=== PATIENT | female | born 1965 | race Caucasian/White ===

== ENCOUNTER 2021-09-15 19:21 | Emergency (ER) | payer BC, SELFPAY ==
--- NOTE | ~2021-09-15 | XR_ITS ---
XR knee LT min 4V 09/15/2021 19:48 Indication: Left knee pain after fall Procedure: 5 views left knee Comparison: No prior studies for comparison. Findings: There is infrapatellar soft tissue swelling. No joint effusion. Mild tricompartment osteoar thritis of the knee. No acute fracture is identified. Impression: 1: No acute fracture. 2: Moderate infrapatellar soft tissue swelling. If there is concern for patellar tendon injury, corre lation with MRI recommended. Reviewed, dictated and finalized at location A. Impression: 1: No acute fracture. 2: Moderate infrapatellar soft tissue swelling. If there is concern for patella r tendon injury, correlation with MRI recommended.
[2021-09-15 19:28] VITALS: BP 135/91; PULSE 75; RESP 20; TEMP 37.3; O2SAT 99
[2021-09-15] MEDS: TETANUS,DIPHTHERIA,AC PERTUSSIS ADULT (0.5 ML) BOOSTRIX IM (20:01)
--- NOTE | 2021-09-15 20:13 | ED.LOWEXIN ---
HPI - Extremity Injury (Lower) General Chief Complaint: Extremity Injury, Lower Stated Complaint: Left knee injury Time Seen by Provider: 09/15/21 19:49 Source: patient and RN notes reviewed Mode of arrival: ambulatory Limitations: no limitations History of Present Illness HPI Narrative: Patient presents today complaining of an injury to her left knee and laceration to her left earlobe. She fell when she on a stair at work at 1730 this afternoon. She is unsure how she injured her ear. Denies numbness or tingling. She currently rates her ear pain 5/10 at rest, which increases to 7/10 with standing or walking. She has applied ice at home without relief. She also took a Tylenol prior to her injury. This will be a Workmen's Compensation injury. MD complaint: knee injury Review of Systems Review of Systems: CONSTITUTIONAL: Denies body aches, fever, chills, or sweats. EYES: Denies visual changes, redness, or discharge. ENT: Denies rhinorrhea, congestion, sore throat, or otalgia. CARDIOVASCULAR: Denies chest pain, palpitations, or edema. RESPIRATORY: Denies cough or dyspnea. GASTROINTESTINAL: Denies abdominal pain, nausea, vomiting, or diarrhea. GENITOURINARY: Denies dysuria or hematuria. SKIN: Denies rash, itching. + Left earlobe laceration MUSCULOSKELETAL: Denies back pain, or myalgia. + Left knee injury NEUROLOGIC: Denies headache, numbness, tingling, or weakness. PSYCH: Denies depression or anxiety. PMFSH Comments At time of signature, I have reviewed and agree with nursing past medical, surgical, social and family history unless otherwise noted. Please see nursing chart for further information. There is no relevant family history pertinent to the presenting complaint Exam Narrative: GENERAL: Well-appearing, well-nourished, and in no acute distress. HEAD: Normocephalic. EYES: EOMI. No redness or drainage. Conjunctivae normal. ENT: Mucous membranes pink and moist. 0.5cm partial thickness linear laceration to the posterior left earlobe. No active bleeding. NECK: Normal AROM. Supple. No lymphadenopathy. CHEST: No respiratory distress. EXTREMITIES: Left knee: Large area of ecchymosis and mild to moderate edema to the medial knee, overlying the medial patella. Pain with flexion and extension. No pain with internal or external rotation. Distal sensation intact. Capillary refill normal. Posterior tibial pulse normal. Tenderness to palpation of the patella. No abnormal movement of the patella. SKIN: Warm, dry, no rash. Capillary refill normal. Normal skin turgor. NEURO: No focal deficits. Alert and oriented x3. Gait steady. PSYCH: Normal affect. No signs of depression or anxiety. Course Vital Signs Vital signs: Vital Signs Temperature 99.1 F 09/15/21 19:28 Pulse Rate 75 09/15/21 19:28 Respiratory Rate 20 09/15/21 19:28 Blood Pressure 135/91 H 09/15/21 19:28 Pulse Oximetry 99 09/15/21 19:28 Temperature 99.1 F 09/15/21 19:28 Pulse Rate 75 09/15/21 19:28 Respiratory Rate 20 09/15/21 19:28 Blood Pressure 135/91 H 09/15/21 19:28 Pulse Oximetry 99 09/15/21 19:28 Reviewed. Pt has been instructed to follow up with her PCP regarding her elevated blood pressure today. Procedures Laceration Laceration 1: Date: 09/15/21 Time: 20:05 Site: face (left earlobe) Size (cm): 0.5 Description: linear Depth: simple, single layer Pre-repair: wound explored (cleansed with saline and technicare) ====== Skin Level ====== Skin layer closed with: dermabond ====== Subcutaneous Layer ====== ====== Muscle Layer ====== ====== Tendon Layer ====== MDM - Extremity Injury (Lower) Differential Diagnosis Differential diagnosis: Likely other (Laceration, contusion, hematoma, abrasion, fracture) Imaging Data Radiologist's impression: ITS Impressions Knee X-Ray 09/15/21 19:53 Impression: 1: No acute fracture. 2: Moderate infr
== END 2021-09-15 20:28 | disposition home or self-care (01) ==
PROVIDERS: Emergency Provider Nurse Practitioner; PCP Internal Medicine
DX: S89.92XA Unspecified injury of left lower leg, initial encounter (principal); W19.XXXA Unspecified fall, initial encounter; Y99.0 Civilian activity done for income or pay; S01.312A Laceration without foreign body of left ear, initial encounter; X58.XXXA Exposure to other specified factors, initial encounter; Z23 Encounter for immunization; E78.00 Pure hypercholesterolemia, unspecified; Z98.84 Bariatric surgery status
CPT/HCPCS: 12011; 73564; 90471; 90715; 99213; G0463; L1830

== ENCOUNTER 2021-11-25 08:10 | Emergency (ER) | payer BC, SELFPAY ==
[2021-11-25 08:18] VITALS: BP 119/82; PULSE 82; RESP 20; TEMP 36.6; O2SAT 99
--- NOTE | 2021-11-25 08:32 | ED.URI ---
HPI - URI/Sore Throat General Chief Complaint: Upper Respiratory Infection Stated Complaint: Headache/Sore Throat/Cough Time Seen by Provider: 11/25/21 08:44 Source: patient Mode of arrival: ambulatory Limitations: no limitations History of Present Illness MD elicited complaint: cough and sore throat Related Data Home Medications Medication Instructions Recorded Confirmed omeprazole magnesium [Acid Drawing Kiln Supervisor 20 mg PO BID 09/15/21 11/25/21 (omeprazole)] pravastatin 10 mg PO DAILY 09/15/21 11/25/21 Allergies Allergy/AdvReac Type Severity Reaction Status Date / Time No Known Allergies Allergy Verified 11/25/21 08:27 Review of Systems Review of Systems: CONSTITUTIONAL: Denies malaise, chills, sweats, or fever. EYES: Denies visual changes, redness, or discharge. ENT: Reports rhinorrhea, congestion, sinus pain, otalgia and sore throat. CARDIOVASCULAR: Denies chest pain, palpitations, or edema. RESPIRATORY: Reports cough. Denies dyspnea. GASTROINTESTINAL: Denies abdominal pain, nausea, vomiting, diarrhea SKIN: Denies rash or itching. MUSCULOSKELETAL: Denies myalgia. NEUROLOGIC: Denies headache. All systems reviewed & are unremarkable except as noted in HPI and below PMFSH Comments At time of signature, agree with nursing past medical, surgical, social and family history. There is no relevant family history pertinent to the presenting complaint Exam Narrative: GENERAL: Well-appearing, well-nourished, and in no acute distress. HEAD: Normocephalic EYES: PERRLA, conjunctivae clear ENT: Nares clear, turbinates edematous and erythematous, clear discharge. Mucous membranes moist. TM pearly mathur with dull light reflex bilaterally; no tragal tenderness. Oropharynx erythematous without lesions. Tonsils enlarged and without exudate, no drooling, no hoarseness, no trismus, uvula midline. NECK: Supple. No lymphadenopathy CHEST: Clear to auscultation, breath sounds equal. No wheezing, rhonchi, rales, or stridor. No respiratory distress, speaks in full sentences. HEART: Regular rate and rhythm. No murmur heard. SKIN: Warm, dry, no rash. NEURO: Alert and oriented x3. PSYCH: Normal mood and affect Course Course Emergency Course: Patient is aware of diagnosis, understands and agrees to treatment plan. Anticipatory guidance given. Patient agrees to follow-up as directed and is aware of reasons to seek care at the emergency department. Portions of this record may have been created with voice recognition software Level of Care: Express Care Visit Vital Signs Vital signs: Vital Signs Temperature 97.9 F 11/25/21 08:18 Pulse Rate 82 11/25/21 08:18 Respiratory Rate 20 11/25/21 08:18 Blood Pressure 119/82 11/25/21 08:18 Pulse Oximetry 99 11/25/21 08:18 Temperature 97.9 F 11/25/21 08:18 Pulse Rate 82 11/25/21 08:18 Respiratory Rate 20 11/25/21 08:18 Blood Pressure 119/82 11/25/21 08:18 Pulse Oximetry 99 11/25/21 08:18 Reviewed MDM - URI/Sore Throat MDM Narrative Medical decision making narrative: Differential diagnosis considered: Denny virus, strep pharyngitis, allergic rhinitis, upper respiratory tract infection, sinusitis, rhinosinusitis, nasopharyngitis. viral pharyngitis, otitis media, otitis externa, pneumonia, bronchitis, viral cough syndrome, viral syndrome, and influenza. Exam findings show no acute concerns or changes; patient is non-toxic appearing and is in no distress. Patient is appropriate for outpatient treatment and follow-up. Discharge Plan Discharge Prescriptions: No Action pravastatin 10 mg Tablet 10 mg PO DAILY RF: 0 omeprazole magnesium [Acid Drawing Kiln Supervisor (omeprazole)] 20 mg Capsule,Delayed Release(Dr/Ec) 20 mg PO BID RF: 0
--- NOTE | 2021-11-25 08:46 | ED.URI ---
HPI - URI/Sore Throat General Chief Complaint: Upper Respiratory Infection Stated Complaint: Headache/Sore Throat/Cough Time Seen by Provider: 11/25/21 08:44 Source: patient Mode of arrival: ambulatory Limitations: no limitations History of Present Illness HPI Narrative: 56-year-old female presented for complaint of body aches, headache, sore throat, fever/chills, and increase in cough for the last 2 days. She has been taking Tylenol arthritis for symptoms. She denies chest pain/pressure, shortness of breath, dizziness, nausea, vomiting, diarrhea. She is vaccinated for Covid including booster. 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 MD elicited complaint: cough and sore throat Related Data Home Medications Medication Instructions Recorded Confirmed omeprazole magnesium [Acid Mother Baby Rn 20 mg PO BID 09/15/21 11/25/21 (omeprazole)] pravastatin 10 mg PO DAILY 09/15/21 11/25/21 Allergies Allergy/AdvReac Type Severity Reaction Status Date / Time No Known Allergies Allergy Verified 11/25/21 08:27 Review of Systems Review of Systems: CONSTITUTIONAL: Denies malaise EYES: Denies visual changes, redness, or discharge. ENT: Reports rhinorrhea, congestion, sinus pain, otalgia and sore throat. CARDIOVASCULAR: Denies chest pain, palpitations, or edema. RESPIRATORY: Reports cough. Denies dyspnea. GASTROINTESTINAL: Denies abdominal pain, nausea, vomiting, diarrhea SKIN: Denies rash or itching. MUSCULOSKELETAL: Denies myalgia. NEUROLOGIC: Denies headache. All systems reviewed & are unremarkable except as noted in HPI and below PMFSH Comments At time of signature, agree with nursing past medical, surgical, social and family history. There is no relevant family history pertinent to the presenting complaint Exam Narrative: GENERAL: Well-appearing, well-nourished, and in no acute distress. HEAD: Normocephalic EYES: PERRLA, conjunctivae clear ENT: Nares clear, turbinates edematous and erythematous, clear discharge. Mucous membranes moist. PND to posterior pharynx. Tonsils enlarged and without exudate, no drooling, no hoarseness, no trismus, uvula midline. NECK: Supple. No lymphadenopathy CHEST: Clear to auscultation, breath sounds equal. No wheezing, rhonchi, rales, or stridor. No respiratory distress, speaks in full sentences. HEART: Regular rate and rhythm. No murmur heard. SKIN: Warm, dry, no rash. NEURO: Alert and oriented x3. PSYCH: Normal mood and affect Course Course Emergency Course: Patient is aware of diagnosis, understands and agrees to treatment plan. Anticipatory guidance given. Patient agrees to follow-up as directed and is aware of reasons to seek care at the emergency department. Portions of this record may have been created with voice recognition software Rapid covid test neg Level of Care: Express Care Visit Vital Signs Vital signs: Vital Signs Temperature 97.9 F 11/25/21 08:18 Pulse Rate 82 11/25/21 08:18 Respiratory Rate 20 11/25/21 08:18 Blood Pressure 119/82 11/25/21 08:18 Pulse Oximetry 99 11/25/21 08:18 Temperature 97.9 F 11/25/21 08:18 Pulse Rate 82 11/25/21 08:18 Respiratory Rate 20 11/25/21 08:18 Blood Pressure 119/82 11/25/21 08:18 Pulse Oximetry 99 11/25/21 08:18 Reviewed MDM - URI/Sore Throat MDM Narrative Medical decision making narrative: Differential diagnosis considered: Denny virus, strep pharyngitis, allergic rhinitis, upper respiratory tract infection, sinusitis, rhinosinusitis, nasopharyngitis. viral pharyngitis, otitis media, otitis externa, pneumonia, bronchitis, viral cough syndrome, viral syndrome, and influenza. Exam findings show no acute concerns or changes; patient is non-toxic appearing and is in no distress. Patient is appropriate for outpatient treatment and follow-up. Discharge Plan Discharge Clinical Impression: Upper respiratory infection, Encounter for laboratory testing for COVID-1
[2021-11-26 22:39] LABS: SARS-CoV-2 RNA PCR Positive
== END 2021-11-25 09:45 | disposition home or self-care (01) ==
PROVIDERS: Emergency Provider Nurse Practitioner Family; PCP Internal Medicine
DX: U07.1 COVID-19 (principal); Z98.84 Bariatric surgery status; E78.00 Pure hypercholesterolemia, unspecified
CPT/HCPCS: 87426; 99213; C9803; G0463; U0003; U0005

== ENCOUNTER 2022-06-05 17:49 | Emergency (ER) | payer BC, SELFPAY ==
--- NOTE | ~2022-06-05 | XR_ITS ---
EXAM: XR finger 1st RT min 2V DATE: 06/05/2022 18:24 HISTORY: KNI. PAIN/SWELLING X 1 WEEK. . COMPARISON: None available. FINDINGS: Decreased mineralization. No fracture or dislocation. No lytic or blastic lesion. Scattere d mild degenerative change. No erosion or periosteal change. Soft tissues within normal limits. IMPRESSION: No acute osseous finding in the right first digit. Reviewed, dictated and finalized at location K.
[2022-06-05 17:54] VITALS: BP 120/77; PULSE 77; RESP 16; TEMP 36.6; O2SAT 100
--- NOTE | 2022-06-05 17:54 | ED.UPPEXIN ---
HPI - Extremity Injury (Upper) General Chief Complaint: Extremity Injury, Upper Stated Complaint: Right thumb hurt Time Seen by Provider: 06/05/22 18:20 Source: patient and RN notes reviewed Mode of arrival: ambulatory Limitations: no limitations History of Present Illness HPI narrative: 56-year-old female presents concern for pain and swelling to the first digit of the right hand. She denies any injury or trauma. She reports pain has been persistent for approximately 1 week and has been slightly increasing. She denies redness, warmth, tenderness. Reports pain at rest and worsening pain with range of motion. She is right-handed MD complaint: injury to: right and finger Related Data Home Medications Medication Instructions Recorded Confirmed omeprazole magnesium 20 mg 20 mg PO BID 09/15/21 06/05/22 capsule,delayed release (Acid Fishing Gear Mechanic (omeprazole)) pravastatin 10 mg tablet 10 mg PO DAILY 09/15/21 06/05/22 Allergies Allergy/AdvReac Type Severity Reaction Status Date / Time No Known Allergies Allergy Verified 05/18/22 15:48 Review of Systems Review of Systems: CONSTITUTIONAL: Denies malaise, chills, sweats, or fever. SKIN: Denies rash or itching, open skin, laceration, abrasion, redness, warmth MUSCULOSKELETAL: Reports pain and swelling to the first digit of the right hand NEUROLOGIC: Denies numbness, weakness All systems reviewed & are unremarkable except as noted in HPI and below PMFSH Comments At time of signature, agree with nursing past medical, surgical, social and family history. There is no relevant family history pertinent to the presenting complaint Exam Narrative: GENERAL: Well-appearing, well-nourished, and in no acute distress. HEAD: Normocephalic EYES: PERRLA, conjunctivae clear NECK: Supple. CHEST: Speaks in full sentences. No respiratory distress. HEART: Regular rate and rhythm. Normal and equal peripheral pulses. EXTREMITIES: First digit of right hand has normal strength and sensation. 5/5 strength with digit flexion, extension. Range of motion normal. No clubbing, cyanosis noted. Mild general digit edema without erythema or warmth. No tenderness. Skin intact. Normal digital cascade with flexion of fingers, median, ulnar and radial nerve intact. Normal sensation of each side of finger. Can perform 'okay' sign, 'cross over finger test of index and middle fingers' and 'thumbs up' sign. No scissoring. Normal thumb opposition. Good capillary refill and radial pulse. Distal capillary refill less than 3 seconds. Patient is right hand dominant SKIN: Warn, dry, intact, pink. No rash NEURO: Alert and oriented x3. PSYCH: Normal mood and affect Course Course Emergency Course: Patient reports she is taking Tylenol arthritis. She reports she is unable to take NSAIDs. Patient is aware of diagnosis, understands and agrees to treatment plan. Anticipatory guidance given. Patient agrees to follow-up as directed and is aware of reasons to seek care at the emergency department. Portions of this record may have been created with voice recognition software Level of Care: Express Care Visit Vital Signs Vital signs: Reviewed. MDM - Extremity Injury (Upper) Imaging Data My impression: Images reviewed, interpreted by radiologist, agree, see report. Radiologist's impression: EXAM:? XR finger 1st RT min 2V DATE: 06/05/2022 18:24 HISTORY: KNI. PAIN/SWELLING X 1 WEEK. . COMPARISON:? None available. FINDINGS:? Decreased mineralization. No fracture or dislocation. No lytic or blastic lesion. Scattered mild degenerative change. No erosion or periosteal change. Soft tissues within normal limits. IMPRESSION: No acute osseous finding in the right first digit. Critical Care Time Critical Care Time Critical Care Time: No Discharge Plan Discharge Clinical Impression: Pain of right thumb Patient Disposition: Home, Self-Care Condition: Stable Instructions: Tendinitis (ED) Additional
== END 2022-06-05 19:14 | disposition home or self-care (01) ==
PROVIDERS: Emergency Provider Nurse Practitioner; PCP Internal Medicine
DX: M79.644 Pain in right finger(s) (principal); E78.00 Pure hypercholesterolemia, unspecified; Z98.84 Bariatric surgery status
CPT/HCPCS: 29130; 73140; 99213; G0463